=== PATIENT | female | born 1970 | race Caucasian/White ===

== ENCOUNTER 2019-01-16 17:28 | Emergency (ER) | payer OTHER ==
[~2019-01-16] VITALS: Ht 154.9 cm; Wt 51.7 kg
[~2019-01-16 17:28] MED LIST: BACTRIM 400-801 EACH PO; DOLOGESIC 500-1 EACH PO
== END 2019-01-16 20:13 | disposition home or self-care (01) ==
LOC: ER 17:28
DX: B34.9 Viral infection, unspecified (principal); R51 Headache